=== PATIENT | female | born 1940 | race Hispanic/Latino ===

== ENCOUNTER → 2018-03-02 | Outpatient (CLI) | payer MEDICARE, OTHER ==
[~2018-03-02] MED LIST: AMLODIPINE BES2.5 MG PO; DIOVAN320 MG PO
--- NOTE | 2018-03-02 15:19 | Diagnostic Imaging Report ---
TECHNIQUE: Magnetic resonance imaging of the LEFT SHOULDER was performed WITHOUT injected contrast. COMPARISON: None available. HISTORY: Left shoulder pain FINDINGS: MUSCLES AND TENDONS: Rotator Cuff: Tendons: Full-thickness tear of the supraspinatus tendon with retraction of the deep fibers approximately 4 cm and superficial fibers approximately 2.5 cm. The tear propagates posteriorly as a partial thickness articular sided tear into the infraspinatus tendon with retraction of the deep fibers. Partial-thickness tearing of the subscapularis. Muscles: No focal muscle atrophy. Biceps Tendon: The long head of the biceps tendon is torn and retracted GLENOHUMERAL JOINT: Glenoid Labrum: Attenuation of the superior labrum. Articular Cartilage: Partial thickness cartilage loss. AC JOINT AND ACROMION: Moderate hypertrophic degenerative changes of the acromioclavicular joint. Subacromial spurring. BONE: No acute fracture. SOFT TISSUES: Otherwise, the soft tissues appear unremarkable. IMPRESSION: Supraspinatus full-thickness tear with posterior propagation into the infraspinatus as a partial-thickness articular sided tear with retraction. No atrophy. Long head biceps tendon tear with retraction. Signed by: Dr. Cuong Mike M.D. on 03/02/2018 3:15 PM
== END ==
LOC: MRI 13:59
PROVIDERS: ATTEND Specialist
DX: S46.092A Other injury of muscle(s) and tendon(s) of the rotator cuff of left shoulder, initial encounter (principal)

== ENCOUNTER → 2018-03-15 | Day surgery (SDC) | payer MEDICARE, OTHER ==
[2018-03-13 10:12] LABS: BASOPHILS % 0.6 % (0.0-1.0); EOSINOPHILS # (AUTO) 0.2 (0.0-0.4); EOSINOPHILS % 3.9 % (0.0-6.0); HEMATOCRIT 37.7 % (34.2-44.1); HEMOGLOBIN 12.6 g/dL (12.0-16.0); LYMPHOCYTES # (AUTO) 2.3 (1.0-3.2); LYMPHOCYTES % 36.5 % (18.0-39.1); MEAN CORPUSCULAR HEMOGLOBIN 29.3 pg (28-32); MEAN CORPUSCULAR HGB CONC 33.4 g/dL (31-35); MEAN CORPUSCULAR VOLUME 87.7 fL (81-99); MONOCYTES # (AUTO) 0.4 (0.2-0.8); MONOCYTES % 7.1 % (4.4-11.3); NEUTROPHILS # (AUTO) 3.2 (2.1-6.9); NEUTROPHILS % 51.6 % (38.7-80.0); PLATELET COUNT 260 x10e3/uL (140-360); RED CELL DISTRIBUTION WIDTH 13.5 % (11.7-14.4)
--- NOTE | 2018-03-13 11:00 | Diagnostic Imaging Report ---
PROCEDURE:CHEST 2 VIEWS TECHNIQUE:PA and lateral chest INDICATION:Preoperative evaluation for shoulder surgery COMPARISON:Patients [facility], , CHEST 2 VIEWS, 07/28/2015, 11:47. FINDINGS: Lungs are clear and symmetrically inflated. No pleural effusions. The heart size, mediastinal contour and pulmonary vasculature. Mildly tortuous descending thoracic aorta. Intact skeleton. CONCLUSION: No acute abnormality or interval change from July 2015. Dictated by: Kamaljit Cardenas M.D. on 03/13/2018 at 11:03 Electronically approved by: Kamaljit Cardenas M.D. on 03/13/2018 at 11:03
[~2018-03-15] MED LIST changes: +CEFAZOLIN SOD 2 GM/D5W 50ML 50 ML IV ONE; +COQ; +DEXAMETHASONE SOD PHOS INJ 4 MG/ML VIAL ONE; +EPHEDRINE SULFATE INJ 50 MG/10 ML SYR ONE; +FENTANYL CITRATE/PF 100MCG/2 ML INJ ONE; +FISH OIL 1,0001 EAC2; +GLYCOPYRROLATE INJ 1MG/ 5 ML SYR ONE; +HEPARIN SOD/SOD CHLORIDE 1,000 ML ONE; +LIDOCAINE 2% /EPINEPHRINE 20 ML SDV INJ ONE; +LIDOCAINE HCL 2% LOCAL INJ 5 ML SDV VIAL INJ ONE; +MIDAZOLAM HCL 2 MG/2 ML VIAL ONE; +MULTI-VITAMIN1 EACH; +NEOSTIGMINE 5 MG/5ML SYR ONE; +ONDANSETRON HCL INJ 2 MG/ML VIAL ONE; +PHENYLEPHRINE HCL 1% 10 MG/ML VIAL ONE; +PROPOFOL IV EMULSION 10 MG/ML 20 ML VIAL ONE; +ROCURONIUM BROMIDE 10 MG/ML 5ML VIAL ONE; +ROPIVACAINE 0.5% 5 MG/ML 30 ML SDV ONE; +SEVOFLURANE INHAL SOLN 250 ML PEN BTL ONE; +VITAMIN C
--- NOTE | 2018-03-18 15:15 | Operative Report ---
DATE OF PROCEDURE: March 15, 2018 PREOPERATIVE DIAGNOSES 1. Left shoulder rotator cuff tear. 2. Left shoulder acromioclavicular joint arthritis. POSTOPERATIVE DIAGNOSES 1. Large chronic left shoulder rotator cuff tear. 2. Left shoulder synovitis. 3. Left shoulder acromioclavicular joint arthritis. OPERATIONS/PROCEDURES PERFORMED 1. Patient underwent left shoulder examination under anesthesia. 2. Left shoulder arthroscopy. 3. Left shoulder arthroscopic debridement of synovitis. 4. Left shoulder arthroscopic repair of a large chronic rotator cuff tear. 5. Left shoulder arthroscopic subacromial decompression acromioplasty and left shoulder arthroscopic distal clavicle resection. HEEL SHAPER: None. ANESTHESIA: General endotracheal intubation anesthesia. IV FLUIDS: Per anesthesia record. BRIEF DESCRIPTION OF OPERATIVE PROCEDURE: Ms. Mascorro was taken to the operating room and placed in supine position on the operating table. Following induction of general anesthesia as well as endotracheal intubation, patient's left upper extremity was examined under anesthesia. She was found to have a normal appearing shoulder. She had full passive range motion of the shoulder joint. There was no evidence of instability. The patient's upper extremity was prepped draped in standard surgical fashion. Standard posterolateral and anterior portals were created difficulty. Scope was placed within the shoulder joint atraumatically. Examination of glenohumeral articulation demonstrated no significant evidence of chondromalacia. The biceps tendon was not found within the shoulder joint. There were no loose bodies in the shoulder. There was diffuse synovitis throughout the shoulder and the patient also had a large retracted rotator cuff tear with delamination of the rotator cuff tissue. Shaver was placed in the shoulder joint and synovitis was debrided. The rotator cuff injury was also debrided. The insertion site for the rotator cuff tissue was then debrided to a bleeding bony bed. The shoulder was deflated of its normal saline. Scope was placed in subacromial space and significant bursal inflammation was encountered. A lateral portal was created through an outside-in technique. Shaver was placed in subacromial space and bursectomy was performed. The rotator cuff tear was easily identified. The rotator cuff tissues were mobilized. The insertion site was debrided further to a bleeding bony bed. Two suture anchors were then inserted into the greater tuberosity and the suture arms from those anchors were woven through the rotator cuff tissue. The rotator cuff tissue was then advanced into its insertion site and tied firmly. This resulted in complete reapproximation of the rotator cuff injury. The patient had a markedly downward sloping acromion. An aggressive acromioplasty was performed. The coracoacromial ligament was also resected at this time. The anterior portal was then transferred into the subacromial space at the level of the AC joint. The AC joint was easily identified and a 1 cm section of the distal clavicle was resected. This was confirmed transferring the scope to the anterior portal. The shoulder was inflated with sterile normal saline. The portal sites were closed using 4-0 nylon suture. Sterile dressings were applied and the patient was provided a shoulder immobilizer, awakened and taken to postanesthesia care unit in stable condition. Job#: [id number] [id number]
--- OUTSIDE RECORDS SUMMARY | 2018-06-28 13:40 | XMS REPORT | Clinical Summary ---
Author Author [facility] Organization [facility] Address Unknown Phone Unavailable Care Team Providers Care Companion Name Role Phone Dimas Das MD PCP Allergies No Known Allergies Current Medications Prescription Sig. Disp. Refills Start End Date Status Date valsartan (DIOVAN) 320 MG Take 320 mg by mouth Active tablet daily. AMLODIPINE BESYLATE, 2.5 mg daily. Active BULK, MISC multivitamin with Take 1 tablet by mouth Active minerals tablet daily. ASCORBATE CALCIUM Take by mouth. Active (VITAMIN C ORAL) LACTOBACILLUS COMBO NO.6 Take by mouth. Active (PROBIOTIC COMPLEX ORAL) estradiol (ESTRACE) 0.01 Insert 0.5 g into the 42.5 g 1 09/12/20 Active % (0.1 mg/gram) vaginal vagina nightly. Every 17 creamIndications: night for 2 weeks, then Postmenopausal atrophic three times a week. vaginitis estradiol (ESTRACE) 0.01 Insert 0.5 g into the 42.5 g 1 01/04/2011/15 Discontin % (0.1 mg/gram) vaginal vagina nightly. Every 17 17 ued creamIndications: night for 2 weeks, then Postmenopausal atrophic three times a week. vaginitis estradiol (ESTRACE) 0.01 Insert 0.5 g into the 42.5 g 1 04/27/20 Discontin % (0.1 mg/gram) vaginal vagina nightly. Every 17 17 ued creamIndications: night for 2 weeks, then Postmenopausal atrophic three times a week. vaginitis Active Problems No known active problems Encounters Date Type Specialty Care Team Description 03/13/2018 Office Visit Urogynecology Nelda Barney NP Female bladder prolapse Mili Tristan, (Primary Dx); Postmenopausal atrophic vaginitis; Pessary maintenance 03/07/2018 Telephone Obstetrics and Gynecology Mili Tristan MD 09/12/2017 Office Visit Urogynecology Nelda Barney NP Female bladder prolapse (Primary Dx); Rectocele; Mixed stress and urge urinary incontinence; Postmenopausal atrophic vaginitis; Pessary maintenance 04/27/2017 Refill Urogynecology Shagufta Nunez MA Postmenopausal atrophic vaginitis 03/14/2017 Office Visit Urogynecology Nelda Barney NP Female bladder prolapse (Primary Dx); Rectocele; Mixed stress and urge urinary incontinence; Postmenopausal atrophic vaginitis; Pessary maintenance after 03/14/2017 Family History Medical History Relation Name Comments Diabetes Brother Diabetes Father Cancer Sister bone Relation Name Status Comments Brother Alive Father Mother Sister Social History Tobacco Use Types Packs/Day Years Used Date Former Smoker Cigarettes 2 Smokeless Tobacco: Former User Comments: as a teenager only for 2 years Alcohol Use Drinks/Week oz/Week Comments No Sex Assigned at Date Recorded Not on file Last Filed Vital Signs Vital Sign Reading Time Taken Blood Pressure 163/87 03/13/2018 2:59 PM CDT Pulse 62 03/13/2018 2:59 PM CDT Temperature 36.6 C (97.8 F) 03/14/2017 3:16 PM CDT Respiratory Rate - - Oxygen Saturation - - Inhaled Oxygen - - Concentration Weight 86.2 kg (190 lb) 03/13/2018 2:59 PM CDT Height 170.2 cm (5' 7") 03/13/2018 2:59 PM CDT Body Mass Index 29.76 03/13/2018 2:59 PM CDT Plan of Treatment Date Type Specialty Care Team Description 08/31/2018 Office Visit Urogynecology Nelda Barney NP [address] [facility] [address] [place] [id number] Mili Duarte MD [address] [facility] [address] [facility] [place] [address] Health Maintenance Due Date Last Done Comments SHINGRIX VACCINE (#1) 1991 ZOSTER VACCINE 2001 PNEUMOCOCCAL 2006 POLYSACCHARIDE VACCINE AGE 65 AND OVER PNEUMOCOCCAL-13 2006 INFLUENZA VACCINE 04/26/2018 Results Not on fileafter 03/14/2017 Insurance Payer Benefit Subscriber ID Type Phone Address Plan / Group CIGNA CIGNA OPEN xxxxxxxxxxx HMO ACCESS/NET WORK MEDICARE MEDICARE xxxxxxxxxx Medicare [place], [place] [address]
== END | disposition home or self-care (01) ==
LOC: OR 07:12
PROVIDERS: ATTEND Specialist
DX: M75.122 Complete rotator cuff tear or rupture of left shoulder, not specified as traumatic (principal); M19.012 Primary osteoarthritis, left shoulder; M65.812 Other synovitis and tenosynovitis, left shoulder; R00.1 Bradycardia, unspecified; I10 Essential (primary) hypertension; R06.83 Snoring; Z01.810 Encounter for preprocedural cardiovascular examination; Z01.812 Encounter for preprocedural laboratory examination; Z01.818 Encounter for other preprocedural examination
CPT/HCPCS: 29824; 29826; 29827; 36415; 71046; 85025; 93005; J1100; J2001 ×2; J2250; J2370; J2405; J2795; J3490

== ENCOUNTER 2018-06-23 09:00 | Outpatient (RCR) | payer MEDICARE, OTHER ==
[~2018-06-23 09:00] MED LIST changes: -CEFAZOLIN SOD 2 GM/D5W 50ML 50 ML IV ONE; -DEXAMETHASONE SOD PHOS INJ 4 MG/ML VIAL ONE; -EPHEDRINE SULFATE INJ 50 MG/10 ML SYR ONE; -FENTANYL CITRATE/PF 100MCG/2 ML INJ ONE; -GLYCOPYRROLATE INJ 1MG/ 5 ML SYR ONE; -HEPARIN SOD/SOD CHLORIDE 1,000 ML ONE; -LIDOCAINE 2% /EPINEPHRINE 20 ML SDV INJ ONE; -LIDOCAINE HCL 2% LOCAL INJ 5 ML SDV VIAL INJ ONE; -MIDAZOLAM HCL 2 MG/2 ML VIAL ONE; -NEOSTIGMINE 5 MG/5ML SYR ONE; -ONDANSETRON HCL INJ 2 MG/ML VIAL ONE; -PHENYLEPHRINE HCL 1% 10 MG/ML VIAL ONE; -PROPOFOL IV EMULSION 10 MG/ML 20 ML VIAL ONE; -ROCURONIUM BROMIDE 10 MG/ML 5ML VIAL ONE; -ROPIVACAINE 0.5% 5 MG/ML 30 ML SDV ONE; -SEVOFLURANE INHAL SOLN 250 ML PEN BTL ONE
== END 2018-06-25 ==
LOC: PT 09:00
PROVIDERS: ATTEND Specialist
DX: M75.102 Unspecified rotator cuff tear or rupture of left shoulder, not specified as traumatic (principal); M25.612 Stiffness of left shoulder, not elsewhere classified; M17.11 Unilateral primary osteoarthritis, right knee; M25.561 Pain in right knee; R26.89 Other abnormalities of gait and mobility
CPT/HCPCS: 97010; 97110 ×10; 97139; 97162; G8984 ×2; G8985 ×2

== ENCOUNTER 2018-07-25 09:00 | Outpatient (RCR) | payer MEDICARE, OTHER | END 2018-07-26 | LOC: PT 09:00 | PROVIDERS: ATTEND Specialist | DX: M75.102 Unspecified rotator cuff tear or rupture of left shoulder, not specified as traumatic (principal); M25.512 Pain in left shoulder; M17.11 Unilateral primary osteoarthritis, right knee; M25.612 Stiffness of left shoulder, not elsewhere classified; M62.81 Muscle weakness (generalized) | CPT/HCPCS: 97139 ==

== ENCOUNTER 2018-08-21 09:00 | Outpatient (RCR) | payer MEDICARE, OTHER | END 2018-08-25 | LOC: PT 09:00 | PROVIDERS: ATTEND Specialist | DX: M25.561 Pain in right knee (principal); M17.11 Unilateral primary osteoarthritis, right knee; M62.81 Muscle weakness (generalized); S43.422A Sprain of left rotator cuff capsule, initial encounter; M25.512 Pain in left shoulder; M25.612 Stiffness of left shoulder, not elsewhere classified | CPT/HCPCS: 97110 ×9; G8984; G8985 ==

== ENCOUNTER → 2018-11-22 | Outpatient (CLI) | payer MEDICARE, OTHER ==
--- NOTE | 2018-11-22 10:09 | Diagnostic Imaging Report ---
TECHNIQUE: Magnetic resonance imaging of the RIGHT SHOULDER was performed WITHOUT injected contrast. HISTORY: Rotator cuff tear, pain, no history of surgery COMPARISON: None available. FINDINGS: MUSCLES AND TENDONS: Rotator Cuff: Tendons: Supraspinatus and Infraspinatus: Full-thickness tear, the full-thickness defect measures 4.3 cm (ML) x 3.3 cm (AP). Fibrillation and asymmetric retraction along the tendon margins. A few residual posterior infraspinatus fibers. Teres Minor: Intact Subscapularis: Full-thickness tear with 1 cm of medial retraction of the superior fibers. Muscles: Moderate atrophy of the supraspinatus and infraspinatus tendon. Biceps Tendon: The intra-articular portion is not definitively visible. Complexly torn fibers within the intertubercular groove. GLENOHUMERAL JOINT: Glenoid Labrum: Complex tearing and attenuation, most notably the superior labrum including the biceps labral anchor. Articular Cartilage: Low-grade diffuse erosion. Joint Fluid: Synovitis and moderate effusion extending into the subacromial/subdeltoid bursa. ACROMIOCLAVICULAR JOINT: Severe hypertrophic degenerative changes of the acromioclavicular joint. Synovitis and small effusion. BONE: The acromion is unremarkable. The bone marrow signal is heterogeneous, compatible with red marrow conversion, no specific evidence of a focal bone marrow replacing abnormality. No acute fracture. Superior subluxation of the humeral head. SOFT TISSUES: Otherwise, unremarkable. IMPRESSION: 1. Chronic full-thickness supraspinatus and infraspinatus tear. 2. Full-thickness tear involving the superior fibers of subscapularis tendon. 3. Proximal rupture and distal retraction of the long head of the biceps tendon to the level of the intertubercular groove. 4. Severe acromioclavicular and mild glenohumeral degenerative changes, including degenerative tearing of the superior labrum. Signed by: Anibal Chung.O., M.M.M. on 11/22/2018 10:06 AM
== END ==
LOC: MRI 08:42
PROVIDERS: ATTEND Specialist
DX: M75.121 Complete rotator cuff tear or rupture of right shoulder, not specified as traumatic (principal)

== ENCOUNTER 2018-12-21 09:00 | Outpatient (RCR) | payer MEDICARE, OTHER | END 2018-12-24 | LOC: PT 09:00 | PROVIDERS: ATTEND Specialist | DX: M25.561 Pain in right knee (principal); M62.81 Muscle weakness (generalized); M25.661 Stiffness of right knee, not elsewhere classified; M25.511 Pain in right shoulder; M25.611 Stiffness of right shoulder, not elsewhere classified; R26.2 Difficulty in walking, not elsewhere classified ==

== ENCOUNTER 2019-01-01 09:00 | Outpatient (RCR) | payer MEDICARE, OTHER | END 2019-01-23 | LOC: PT 09:00 | PROVIDERS: ATTEND Specialist | DX: M17.11 Unilateral primary osteoarthritis, right knee (principal); M25.561 Pain in right knee; M25.661 Stiffness of right knee, not elsewhere classified; M25.511 Pain in right shoulder; M25.611 Stiffness of right shoulder, not elsewhere classified; M62.81 Muscle weakness (generalized); R26.2 Difficulty in walking, not elsewhere classified ==

== ENCOUNTER 2019-08-24 08:58 | Outpatient (RCR) | payer MEDICARE, OTHER | END 2019-08-25 | LOC: PT 08:58 | PROVIDERS: ATTEND Orthopaedic Surgery | DX: Z96.651 Presence of right artificial knee joint (principal); Z47.1 Aftercare following joint replacement surgery ==

== ENCOUNTER 2019-11-16 09:00 | Outpatient (RCR) | payer MEDICARE, OTHER | END 2019-11-24 | LOC: PT 09:00 | PROVIDERS: ATTEND Orthopaedic Surgery | DX: Z96.651 Presence of right artificial knee joint (principal); Z47.1 Aftercare following joint replacement surgery; M25.561 Pain in right knee; M25.661 Stiffness of right knee, not elsewhere classified; M62.81 Muscle weakness (generalized); R26.9 Unspecified abnormalities of gait and mobility | CPT/HCPCS: 97139 ==